=== PATIENT | female | born 1950 | race Caucasian/White ===

== ENCOUNTER 2021-05-01 10:14 | Outpatient (CLI) | payer MEDICARE ==
[~2021-05-01 10:14] MED LIST: APIX5TAB PO; ASPI81TA45 PO; ENOX80SY4 SQ; LISI-167 PO; LORA-446 PO; OXYC5CAP2 PO; SENN1TAB67 PO
== END 2021-05-01 23:59 | disposition home or self-care (01) ==
LOC: RAD 10:14
PROVIDERS: ATTEND Internal Medicine
DX: C20 Malignant neoplasm of rectum (principal); M47.816 Spondylosis without myelopathy or radiculopathy, lumbar region; D64.9 Anemia, unspecified; Z51.11 Encounter for antineoplastic chemotherapy; Z79.01 Long term (current) use of anticoagulants; Z79.899 Other long term (current) drug therapy; Z86.711 Personal history of pulmonary embolism
CPT/HCPCS: 72100